=== PATIENT | female | born 1945 | race Caucasian/White ===

== ENCOUNTER 2017-11-10 09:35 | Emergency (ER) | payer OTHER ==
[~2017-11-10] VITALS: Ht 165.1 cm; Wt 45.4 kg
--- NOTE | ~2017-11-10 | EKG ---
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
[~2017-11-10 09:35] MED LIST: BACTRIM DS TAB1 EACH PO
[2017-11-10 10:41] LABS: ABSOLUTE NEUTROPHILS 6.3 thou/uL (1.4-8.2); BASOPHILS 0.6 % (0.0-2.0); EOSINOPHILS 0.5 % (0.0-3.0); HEMATOCRIT 37.4 % (37.0-47.0); HEMOGLOBIN 12.8 gm/dL (12.0-15.0); LYMPHOCYTES 22.1 % (24.0-44.0); MCH 34.1 pg (26.0-34.0); MCHC 34.2 g/dL (28.0-37.0); MCV 99.8 fL (80.0-100.0); MONOCYTES 6.2 % (1.0-8.0); PLATELET COUNT 364 thou/uL (150-400); POLYS 70.6 % (36.0-66.0); RBC 3.74 mil/uL (4.20-5.00); RDW 13.6 % (10.5-14.5); WBC 8.9 thou/uL (4.0-11.0)
[2017-11-10 10:50] LABS: ANION GAP 5 mmol/L (7-16); BUN 13 mg/dL (7-18); CALCIUM 9.1 mg/dL (8.5-10.1); CHLORIDE 106 mmol/L (98-107); CO2 28 mmol/L (21-32); CREATININE 0.9 mg/dL (0.6-1.0); GLUCOSE 89 mg/dL (74-106); POTASSIUM 4.8 mmol/L (3.5-5.1); SODIUM 139 mmol/L (136-145)
[2017-11-10 10:58] LABS: TROPONIN-I < 0.04 ng/mL (<0.06)
[2017-11-10 11:36] LABS: URINE BILIRUBIN NEGATIVE (Negative); URINE BLOOD NEGATIVE (Negative); URINE CLARITY CLEAR; URINE COLOR YELLOW; URINE GLUCOSE-RANDOM* NEGATIVE (Negative); URINE KETONES NEGATIVE (Negative); URINE LEUKOCYTES 1+ (Negative); URINE NITRITE NEGATIVE (Negative); URINE PROTEIN (DIPSTICK) NEGATIVE (Negative); URINE SPECIFIC GRAVITY <= 1.005 (1.005-1.035); URINE UROBILINOGEN 0.2 E.U./dl (0.2-1.0)
[2017-11-10 11:47] LABS: CASTS None Seen /LPF (None Seen); MUCUS 0-3 Light strn/LPF (None Seen); SQUAMOUS 0-3 Few /LPF (0-3)
[2017-11-10 11:48] LABS: BACTERIA None Seen /HPF (None Seen); URINE WBC 0-5 Rare /HPF (0-5)
[2017-11-10 11:49] LABS: CRYSTALS None Seen /LPF (None Seen); URINE RBC None Seen /HPF (0-2)
[2017-11-10 12:00] VITALS: BP 127/65
== END 2017-11-10 12:10 | disposition home or self-care (01) ==
LOC: ER 09:35
PROVIDERS: Nurse Practitioner
DX: S50.11XA Contusion of right forearm, initial encounter (principal); S60.212A Contusion of left wrist, initial encounter; S00.93XA Contusion of unspecified part of head, initial encounter; S40.011A Contusion of right shoulder, initial encounter; Z88.0 Allergy status to penicillin; Z88.5 Allergy status to narcotic agent; V89.0XXA Person injured in unspecified motor-vehicle accident, nontraffic, initial encounter; Y93.89 Activity, other specified; Y92.89 Other specified places as the place of occurrence of the external cause; Y99.8 Other external cause status

== ENCOUNTER 2018-05-04 01:42 | Emergency (ER) | payer OTHER ==
[~2018-05-04] VITALS: Ht 160 cm; Wt 54.4 kg
--- NOTE | ~2018-05-04 | EKG ---
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 : 1945 Requested By: Prashanth Bains Order Number: [id number] MD: Mateusz Watts Measurements Intervals [place] Rate: 69 P: 84 IN: 158 QRS: 72 QRSD: 88 T: 61 QT: 399 QTc: 428 Interpretive Statements Sinus rhythm Poor R wave progression Compared to ECG 11/10/2017 09:59:24 No significant changes Electronically Signed On 05-04-2018 8:17:26 CDT by Mateusz Watts [email or web address] <ELECTRONICALLY SIGNED> By: Mateusz Watts MD, [facility] 05/04/18 0817 9 Mateusz Watts MD, [facility] /EPI
[2018-05-04 02:04] LABS: ABSOLUTE NEUTROPHILS 4.9 thou/uL (1.4-8.2); BASOPHILS 0.5 % (0.0-2.0); EOSINOPHILS 1.2 % (0.0-3.0); HEMATOCRIT 35.4 % (37.0-47.0); HEMOGLOBIN 11.9 gm/dL (12.0-15.0); LYMPHOCYTES 33.3 % (24.0-44.0); MCH 33.4 pg (26.0-34.0); MCHC 33.6 g/dL (28.0-37.0); MCV 99.5 fL (80.0-100.0); MONOCYTES 8.4 % (1.0-8.0); PLATELET COUNT 323 thou/uL (150-400); POLYS 56.6 % (36.0-66.0); RBC 3.55 mil/uL (4.20-5.00); RDW 13.3 % (10.5-14.5); WBC 8.6 thou/uL (4.0-11.0)
[2018-05-04 02:11] LABS: ANION GAP 3 mmol/L (7-16); BUN 14 mg/dL (7-18); CALCIUM 9.9 mg/dL (8.5-10.1); CHLORIDE 105 mmol/L (98-107); CO2 27 mmol/L (21-32); CREATININE 0.9 mg/dL (0.6-1.0); GLUCOSE 93 mg/dL (74-106); POTASSIUM 4.1 mmol/L (3.5-5.1); SODIUM 135 mmol/L (136-145)
[2018-05-04 02:20] LABS: TROPONIN-I <0.06 ng/mL (<0.06)
[2018-05-04] MEDS ORDERED: MOBIC7.5 MG PO (03:02)
[2018-05-04 03:32] VITALS: BP 109/51
== END 2018-05-04 03:33 | disposition home or self-care (01) ==
LOC: ER 01:42
PROVIDERS: Emergency Medicine
DX: R07.89 Other chest pain (principal); F17.210 Nicotine dependence, cigarettes, uncomplicated; Z88.0 Allergy status to penicillin; Z88.5 Allergy status to narcotic agent; Z88.7 Allergy status to serum and vaccine; Z90.13 Acquired absence of bilateral breasts and nipples